=== PATIENT | male | born 1990 | race Caucasian/White ===

== ENCOUNTER 2016-11-03 05:28 | Emergency (ER) | payer BC, OTHER ==
[2016-11-03 06:09] VITALS: BP 128/78; PULSE 85; TEMP 98.6; BMI 25.8
--- NOTE | 2016-11-03 06:09 | PDOC ---
*Physical Exam - Vital Signs Last Vital Signs Temp Pulse Resp BP Pulse Ox 98.6 F 85 14 128/78 100 11/03/16 05:52 11/03/16 05:52 11/03/16 05:52 11/03/16 05:52 11/03/16 05:52 Medical Decision Making - Medical Decision Making 11/03/16 06:09 agree with care from [facility] *DC/Admit/Observation/Transfer Diagnosis at time of Disposition: Knee injury - Discharge Dispostion Disposition: HOME Condition at time of disposition: Stable - Referrals Referrals: Carl Nina MD [Primary Care Provider] - Keven Varela MD [Staff Physician] - - Patient Instructions Printed Discharge Instructions: DI for Knee Pain Additional Instructions: Please take medications as prescribed and follow up with your occupational health services as planned. If your pain persists in your knees, please follow up with orthopedics (referral provided). Follow up with your dentist for further evaluation regarding the concerns you have of your teeth. If you experience any fever, nausea, vomiting, shortness of breath, difficulty breathing, or any new or worsening symptoms, please return to the ER.
[2016-11-03] MEDS ORDERED: KETOROLAC TROMETHAMINE 30 MG/1 ML VIAL IM ONE (06:14)
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
[2016-11-03] MEDS ORDERED: BACITRACIN 0.9 GM PACKET ONE (06:23)
[2016-11-03] MEDS ORDERED: KETOROLAC TROMETHAMINE 30 MG/1 ML VIAL ONE (06:24)
[2016-11-03] MEDS ORDERED: DIPHTH,PERTUSS(ACELL),TET 0.5 ML DISP.SYRIN IM ONE (06:34)
== END 2016-11-03 06:57 | disposition home or self-care (01) ==
LOC: JER 05:28
PROC: 3E0234Z Introduction of Serum, Toxoid and Vaccine into Muscle, Percutaneous Approach (ICD-10-PCS; principal; 2016-11-03)
PROC: 3E0233Z Introduction of Anti-inflammatory into Muscle, Percutaneous Approach (ICD-10-PCS; 2016-11-03)
DX: S89.90XA Unspecified injury of unspecified lower leg, initial encounter (principal); Y35.811A Legal intervention involving manhandling, law enforcement official injured, initial encounter; Y93.89 Activity, other specified; Y92.9 Unspecified place or not applicable; Y99.0 Civilian activity done for income or pay
CPT/HCPCS: 90715; 99282-25

== ENCOUNTER 2017-02-08 20:54 | Emergency (ER) | payer OTHER ==
[2017-02-08 21:21] VITALS: BP 141/99; PULSE 90; TEMP 98.7; BMI 25.1
[2017-02-08] MEDS ORDERED: IBUPROFEN 600 MG TABLET (FP) PO ONE ×2 (21:28)
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
== END 2017-02-08 22:00 | disposition home or self-care (01) ==
LOC: JERFT 20:54 → JER 20:54 → JERFT 22:00
DX: S89.81XA Other specified injuries of right lower leg, initial encounter (principal); W18.39XA Other fall on same level, initial encounter; Y35.811A Legal intervention involving manhandling, law enforcement official injured, initial encounter; Y93.89 Activity, other specified; Y92.89 Other specified places as the place of occurrence of the external cause; Y99.0 Civilian activity done for income or pay
CPT/HCPCS: 73562-TC-RT; 99281-25

== ENCOUNTER 2017-03-04 22:07 | Emergency (ER) | payer OTHER ==
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
[2017-03-04 22:31] VITALS: BP 133/76; PULSE 57; TEMP 98.3; BMI 25.8
== END 2017-03-04 22:56 | disposition home or self-care (01) ==
LOC: JER 22:07
DX: Z77.21 Contact with and (suspected) exposure to potentially hazardous body fluids (principal); Y35.811A Legal intervention involving manhandling, law enforcement official injured, initial encounter; Y93.89 Activity, other specified; Y92.89 Other specified places as the place of occurrence of the external cause; Y99.0 Civilian activity done for income or pay
CPT/HCPCS: 99281-25

== ENCOUNTER 2018-01-12 01:56 | Emergency (ER) | payer OTHER ==
[2018-01-12 02:02] VITALS: BP 133/99; PULSE 61; TEMP 98.2; BMI 26.6
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
== END 2018-01-12 02:52 | disposition home or self-care (01) ==
LOC: JER 01:56
DX: Z77.21 Contact with and (suspected) exposure to potentially hazardous body fluids (principal); Y35.811A Legal intervention involving manhandling, law enforcement official injured, initial encounter; Y93.89 Activity, other specified; Y92.89 Other specified places as the place of occurrence of the external cause; Y99.0 Civilian activity done for income or pay
CPT/HCPCS: 99282-25

== ENCOUNTER 2018-04-17 02:25 | Emergency (ER) | payer OTHER ==
[2018-04-17 02:52] VITALS: BP 127/76; PULSE 65; TEMP 98.3; BMI 27.3
[2018-04-17] MEDS ORDERED: IBUPROFEN 600 MG TABLET (FP) PO ONE ×2 (03:08→03:53)
[2018-04-17] MEDS ORDERED: METHOCARBAMOL 500 MG TABLET PO ONE (03:08)
[2018-04-17] MEDS ORDERED: METHOCARBAMOL 500 MG TABLET ONE (03:53)
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
[2018-04-17] MEDS ORDERED: LIDOCAINE 5% TOPICAL PATCH TP ONE (04:53)
[2018-04-17] MEDS ORDERED: LIDOCAINE 5% TOPICAL PATCH ONE (05:05)
[2018-04-17] MEDS ORDERED: LIDOCAINE PATCH REMOVAL MC SCH (22:00)
== END 2018-04-17 05:08 | disposition home or self-care (01) ==
LOC: JER 02:25
DX: M54.12 Radiculopathy, cervical region (principal); G44.209 Tension-type headache, unspecified, not intractable; V49.49XA Driver injured in collision with other motor vehicles in traffic accident, initial encounter; Y92.414 Local residential or business street as the place of occurrence of the external cause; Y99.0 Civilian activity done for income or pay; Y93.89 Activity, other specified
CPT/HCPCS: 70450-TC; 72125-TC; 99281-25